=== PATIENT | female | born 2000 | race Caucasian/White ===

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

== ENCOUNTER 2023-01-08 20:32 | Emergency (ER) | payer OTHER ==
[2023-01-08] VITALS (15 sets, daily range): BP systolic 112–160; BP diastolic 76–94
[~2023-01-08] VITALS: Ht 170.2 cm; Wt 64.0 kg
[~2023-01-08 20:32] MED LIST changes: +XANAX0.25 MG PO
[2023-01-08 21:48] LABS: BASO% 0.2 % (0-3); EOS% 2.2 % (0-8); HEMATOCRIT 40.3 % (37.0-47.0); HEMOGLOBIN 13.3 g/dl (12.0-16.0); IMMATURE GRANULOCYTES 0.1 % (0.0-5.0); LYMPH% 24.4 % (15-41); MEAN CELL VOLUME 86.9 fL CALC (80.0-100.0); MEAN CORPUSCULAR HGB 28.7 pG CALC (26.0-32.0); MONO% 6.9 % (2-13); NEUT# 5.48 thou/uL (2.00-7.15); NEUT% 66.2 % (42-76); RED BLOOD COUNT 4.64 mill/uL (4.20-5.60); RED CELL DISTRI WIDTH 12.4 % (11.5-15.5)
[2023-01-08 21:57] LABS: ALBUMIN 4.9 g/dL (3.2-5.0); ALKALINE PHOSPHATASE 74 u/l (38-126); ANION GAP 14 (6-22 (CALC)); BUN 10 mg/dL (7-17); BUN/CREATININE RATIO 15 (12-20 (CALC)); CARBON DIOXIDE 25 mmol/l (22-30); CHLORIDE 104 mmol/l (95-108); CREATININE 0.7 mg/dL (0.5-1.0); GFR FOR AFR.AMER. > 60 ML/MIN (>=60 (CALC)); GFR OTHER RACES > 60 ML/MIN (>=60 (CALC)); MAGNESIUM 2.1 mg/dL (1.6-2.3); SGOT/AST 22 u/l (14-36); SODIUM 139 mmol/l (137-146); TOTAL PROTEIN 8.3 g/dL (6.3-8.2)
[2023-01-08 22:04] LABS: BILIRUBIN, TOTAL 0.5 mg/dL (0.02-1.3)
[2023-01-08 22:28] LABS: TSH, 3RD GENERATION 0.52 uIU/mL (0.47 - 4.68)
[2023-01-08 23:03] LABS: URINE BILIRUBIN - DIPSTICK NEGATIVE (NEGATIVE); URINE BLOOD DIPSTICK NEGATIVE (NEGATIVE); URINE COLOR YELLOW; URINE GLUCOSE - DIPSTICK NEGATIVE (NEGATIVE); URINE KETONE NEGATIVE (NEGATIVE); URINE LEUK ESTERASE NEGATIVE (NEGATIVE); URINE PROTEIN - DIPSTICK NEGATIVE (NEG-TRACE); URINE SPECIFIC GRAVITY <=1.005; URINE UROBILINOGEN - DIPSTICK 0.2 E.U./dL (0.2)
[2023-01-08 23:06] LABS: URINE NITRITE - DIPSTICK NEGATIVE (Negative)
[2023-01-08] MEDS ORDERED: PROPRANOLOL HCL20 MG PO (23:24)
[2023-01-08] MEDS ORDERED: BUSPAR5 MG PO (23:24)
== END 2023-01-08 23:48 | disposition home or self-care (01) ==
LOC: ED 20:32
PROVIDERS: Family Medicine
DX: F41.9 Anxiety disorder, unspecified (principal); R00.0 Tachycardia, unspecified; R55 Syncope and collapse

== ENCOUNTER 2023-07-18 11:00 | Emergency (ER) | payer OTHER ==
[~2023-07-18] VITALS: Ht 170.2 cm; Wt 70.3 kg
[2023-07-18] VITALS (13 sets, daily range): BP systolic 109–141; BP diastolic 68–97
[~2023-07-18 11:00] MED LIST changes: +BUSPAR5 MG PO; +PROPRANOLOL HCL20 MG PO
[2023-07-18 11:45] LABS: BASO% 0.3 % (0-3); EOS% 1.1 % (0-8); HEMATOCRIT 39.4 % (37.0-47.0); HEMOGLOBIN 13.1 g/dl (12.0-16.0); IMMATURE GRANULOCYTES 0.5 % (0.0-5.0); LYMPH% 18.6 % (15-41); MEAN CELL VOLUME 87.6 fL CALC (80.0-100.0); MEAN CORPUSCULAR HGB 29.1 pG CALC (26.0-32.0); MEAN CORPUSCULAR HGB CONC 33.2 g/dL CAL (32.0-36.0); MONO% 6.5 % (2-13); NEUT# 5.49 thou/uL (2.00-7.15); RED BLOOD COUNT 4.5 mill/uL (4.20-5.60); RED CELL DISTRI WIDTH 12.6 % (11.5-15.5)
[2023-07-18 11:48] LABS: ALBUMIN 4.8 g/dL (3.2-5.0); ALKALINE PHOSPHATASE 75 u/l (38-126); ANION GAP 12 (6-22 (CALC)); BILIRUBIN, TOTAL 0.5 mg/dL (0.02-1.3); BUN 8 mg/dL (7-17); BUN/CREATININE RATIO 13 (12-20 (CALC)); CARBON DIOXIDE 25 mmol/l (22-30); CHLORIDE 106 mmol/l (95-108); CREATININE 0.7 mg/dL (0.5-1.0); GFR FOR AFR.AMER. > 60 ML/MIN (>=60 (CALC)); GFR OTHER RACES > 60 ML/MIN (>=60 (CALC)); LIPASE 69 u/l (23-300); POTASSIUM 4.1 mmol/l (3.5-5.1); SGOT/AST 23 u/l (14-36); SODIUM 139 mmol/l (137-146); TOTAL PROTEIN 7.7 g/dL (6.3-8.2)
[2023-07-18 13:02] LABS: URINE BILIRUBIN - DIPSTICK Negative (NEGATIVE); URINE BLOOD DIPSTICK Negative (NEGATIVE); URINE GLUCOSE - DIPSTICK Negative (NEGATIVE); URINE KETONE Negative (NEGATIVE); URINE LEUK ESTERASE Negative (NEGATIVE); URINE NITRITE - DIPSTICK Negative (Negative); URINE PH 7.5 (4.5-8.0); URINE PROTEIN - DIPSTICK Negative (NEG-TRACE); URINE SPECIFIC GRAVITY 1.015; URINE UROBILINOGEN - DIPSTICK 0.2 E.U./dL (0.2)
[2023-07-18 13:04] LABS: URINE COLOR Yellow
[2023-07-18] MEDS ORDERED: ZOFRAN4 MG/TAB PO (13:54)
[2023-07-18] MEDS ORDERED: CLONAZEPAM0.5 M1 PO (14:43)
== END 2023-07-18 14:53 | disposition home or self-care (01) | DRG 90 ==
LOC: ED 11:00
PROVIDERS: Family Medicine
DX: S06.0X1A Concussion with loss of consciousness of 30 minutes or less, initial encounter (principal); S20.219A Contusion of unspecified front wall of thorax, initial encounter; M54.2 Cervicalgia; R10.9 Unspecified abdominal pain; M25.572 Pain in left ankle and joints of left foot; M54.50 Low back pain, unspecified; V48.5XXA Car driver injured in noncollision transport accident in traffic accident, initial encounter
CPT/HCPCS: Q9967